=== PATIENT | male | born 1935 | race Caucasian/White ===

== ENCOUNTER 2019-09-22 23:46 | Inpatient (IN) | payer MEDICARE, BC ==
[~2019-09-22] VITALS: Ht 185.4 cm; Wt 89.8 kg
[~2019-09-22 23:46] MED LIST: ASPIR 8181 MG PO; ATENOLOL50 MG PO; FAMOTIDINE20 MG PO; PRAVASTATIN SOD40 MG PO; SIMETHICONE80 MG PO; WARFARIN SODIUM4 MG PO
[2019-09-23] VITALS (9 sets, daily range): BP systolic 105–179; BP diastolic 55–90
[2019-09-23 00:26] LABS: BASOPHILS % 0.7 % (0.0-1.0); EOSINOPHILS # (AUTO) 0.1 (0.0-0.4); EOSINOPHILS % 1.9 % (0.0-6.0); HEMOGLOBIN 13.3 g/dL (14.0-18.0); LYMPHOCYTES # (AUTO) 1.4 (1.0-3.2); LYMPHOCYTES % 23.8 % (18.0-39.1); MEAN CORPUSCULAR HEMOGLOBIN 30.7 pg (28-32); MEAN CORPUSCULAR HGB CONC 32.4 g/dL (31-35); MEAN CORPUSCULAR VOLUME 94.7 fL (81-99); MONOCYTES # (AUTO) 0.6 (0.2-0.8); MONOCYTES % 9.5 % (4.4-11.3); NEUTROPHILS # (AUTO) 3.7 (2.1-6.9); NEUTROPHILS % 63.9 % (38.7-80.0); PLATELET COUNT 152 x10e3/uL (140-360); RED BLOOD COUNT 4.33 x10e6/uL (4.3-5.7); RED CELL DISTRIBUTION WIDTH 14.5 % (11.7-14.4)
[2019-09-23] MEDS ORDERED: WARFARIN SODIUM6 MG PO (00:28)
[2019-09-23] MEDS ORDERED: WARFARIN SODIU2.5 MG PO (00:28)
[2019-09-23] MEDS ORDERED: LISINOPRIL10 MG PO (00:28)
[2019-09-23 00:36] LABS: INR 1.49; PROTHROMBIN TIME 18.6 seconds (11.9-14.5)
[2019-09-23 00:45] LABS: ALANINE AMINOTRANSFERASE 18 IU/L (0-55); ALBUMIN 3.7 g/dL (3.5-5.0); ALBUMIN/GLOBULIN RATIO 1.2 (0.8-2.0); ALKALINE PHOSPHATASE 90 IU/L (40-150); ANION GAP 12.3 mmol/L (8-16); BLOOD UREA NITROGEN 25 mg/dL (7-26); BUN/CREATININE RATIO 22 (6-25); CARBON DIOXIDE 27 mmol/L (22-29); CHLORIDE 105 mmol/L (98-107); CREATININE, SERUM 1.15 mg/dL (0.72-1.25); EST GLOMERULAR FILTRATION RATE > 60 ML/MIN (60-); GLUCOSE 101 mg/dL (74-118); POTASSIUM 4.3 mmol/L (3.5-5.1); SODIUM 140 mmol/L (136-145)
[2019-09-23 00:48] LABS: CALCIUM 9.4 mg/dL (8.4-10.2)
--- NOTE | 2019-09-23 01:04 | Diagnostic Imaging Report ---
History: Head injury, on Coumadin. Comparison studies:None Technique: Axial images were obtained from the brain and cervical spine. Coronal and sagittal images reconstructed from the axial data. Intravenous contrast: None Dose modulation, iterative reconstruction, and/or weight based adjustment of the mA/kV was utilized to reduce the radiation dose to as low as reasonably achievable. Findings: Head CT: Scalp/skull: No abnormalities. No fractures, blastic or lytic lesions. Brain sulci: Moderately prominent. Ventricles: Moderate compensatory dilatation. No hydrocephalus. Parenchyma: Scattered hypodensities in the supratentorial white matter are small vessel ischemic changes. Cortical-based hypodensity with volume loss at the right inferior frontal gyrus and left occipital temporal region, related to remote insult. Chronic lacunar infarct of the left blanco radiata. No masses, hemorrhage or acute cortical vascular insults. Sellar/suprasellar region: No abnormalities. Craniocervical junction: Patent foramen magnum. No Chiari one malformation. Incidental findings: Atherosclerotic calcifications in the carotid siphons and vertebral arteries . Cervical spine CT: Fractures: None. Soft tissues: No gross abnormalities. Atlantoaxial articulation: Degenerative changes without acute abnormality. Alignment: Normal lordosis. No scoliosis. Cervicomedullary junction: No abnormalities. Patent foramen magnum. Vertebrae: No infection or neoplasm. Degenerative changes: Decreased intervertebral space with endplate sclerosis from C6 through T2 moderate left at C3-4, moderate right at C4-5, severe right and mild left at C5-6, and C6-7.. Incidental findings: Atherosclerotic calcifications of the carotid bulbs and aortic arch. Impression: Head CT: 1. No acute abnormality. Cervical spine CT: 1. No acute abnormalities. 2. Cannot exclude ligament, spinal cord and or vascular abnormalities on the basis of this examination. Signed by: DR Tomy Esteban M.D. on 09/23/2019 1:01 AM
--- OUTSIDE RECORDS SUMMARY | 2019-09-23 01:58 | XMS REPORT ---
Author Author [facility] Address Unknown Phone Unavailable Care Team Providers Care Record Press Tender Name Role Phone LASHAY MADDIE Unavailable Unavailable Problems This patient has no known problems. Allergies, Adverse Reactions, Alerts This patient has no known allergies or adverse reactions. Medications This patient has no known medications. Results Test Description Test Time Test Comments Text Results Atomic Results Result Comments CT BRAIN WO 2019-09-23 00:49:00 [facility] [address] [address] Patient Name: NINO TIRADO MR #: [id number] : 1935 Age/Sex: 84/M Req #: [id number] Adm Physician: Ordered by: MADDIE METZ DO Report #: [id number] Location: ER Room/Bed: Procedure: [id number] CT/CT BRAIN WO Exam Date: Exam Time: REPORT STATUS: Signed History: Head injury, on Coumadin. Comparison studies:None Technique: Axial images were obtained from the brain and cervical spine. Coronal and sagittal images reconstructed from the axial data. Intravenous contrast: None Dose modulation, iterative reconstruction, and/or weight based adjustment of the mA/kV was utilized to reduce the radiation dose to as low as reasonably achievable. Findings: Head CT: Scalp/skull: No abnormalities. No fractures, blastic or lytic lesions. Brain sulci: Moderately prominent. Ventricles: Moderate compensatory dilatation. No hydrocephalus. Parenchyma: Scattered hypodensities in the supratentorial white matter are small vessel ischemic changes. Cortical-based hypodensity with volume loss at the right inferior frontal gyrus and left occipital temporal region, related to remote insult. Chronic lacunar infarct of the left blanco radiata. No masses, hemorrhage or acute cortical vascular insults. Sellar/suprasellar region: No abnormalities. Craniocervical junction: Patent foramen magnum. No Chiari one malformation. Incidental findings: Atherosclerotic calcifications in the carotid siphons and vertebral arteries . Cervical spine CT: Fractures: None. Soft tissues: No gross abnormalities. Atlantoaxial articulation: Degenerative changes without acute abnormality. Alignment: Normal lordosis. No scoliosis. Cervicomedullary junction: No abnormalities. Patent foramen magnum. Vertebrae: No infection or neoplasm. Degenerative changes: Decreased intervertebral space with endplate sclerosis from C6 through T2 moderate left at C3-4, moderate right at C4-5, severe right and mild left at C5-6, and C6-7.. Incidental findings: Atherosclerotic calcifications of the carotid bulbs and aortic arch. Impression: Head CT: 1. No acute abnormality. Cervical spine CT: 1. No acute abnormalities. 2. Cannot exclude ligament, spinal cord and or vascular abnormalities on the basis of this examination. Signed by: DR Tomy Esteban M.D. on 09/23/2019 1:01 AM Dictated By: TOMY ESTEBAN MD 0 Transcribed By: JAYDE on 09/23/19100 COPY TO: MADDIE METZ DO CT CERVICAL SPINE WO 2019-09-23 00:49:00 [address] [address] Patient Name: NINO TIRADO MR #: [id number] : 1935 Age/Sex: 84/M Req #: [id number] Adm Physician: Ordered by: MADDIE METZ DO Report #: [id number] Location: Room/Bed: Procedure: [id number] CT/CT CERVICAL SPINE WO Exam Date: 09/23/19 Exam Time: 0025 REPORT STATUS: Signed History: Head injury, on Coumadin. Comparison studies :None Technique: Axial images were obtained from the brain and cervical spine. Coronal and sagittal images reconstructed from the axial data. Intravenous contrast: None Dose modulation, iterative reconstruction, and/or weight based adjustment of the mA/kV was utilized to reduce the radiation dose to as low as reasonably achievable. Findings: Head CT: Scalp/skull: No abnormalities. No fractures, blastic or lytic lesions. Brain sulci: Moderately prominent. Ventricles: Moderate compensatory dilatation. No hydrocephalus. Parenchyma: Scattered hypodensities in the supratentorial white matter are small vessel ischemic changes. Cortical-based hypodensity with volume loss at the right inferior frontal gyrus and left occipital temporal region, related to remote insult. Chronic lacunar infarct of the left blanco radiata. No masses, hemorrhage or acute cortical vascular insults. Sellar/suprasellar region: No abnormalities. Craniocervical junc tion: Patent foramen magnum. No Chiari one malformation. Incidental findings: Atherosclerotic calcifications in the carotid siphons and vertebral arteries . Cervical spine CT: Fractures: None. Soft tissues: No gross abnormalities. Atlantoaxial articulation: Degenerative changes without acute abnormality. Alignment: Normal lordosis. No scoliosis. Cervicomedullary junction: No abnormalities. Patent foramen magnum. Vertebrae: No infection or neoplasm. Degenerative changes: Decreased intervertebral space with endplate sclerosis from C6 through T2 moderate left at C3-4, moderate right at C4-5, severe right and mild left at C5-6, and C6- 7.. Incidental findings: Atherosclerotic calcifications of the carotid bulbs and aortic arch. Impression: Head CT: 1. No acute abnormality. Cervical spine CT: 1. No acute abnormalities. 2. Cannot exclude ligament, spinal cord and or vascular abnormalities on the basis of this examination. Signed by: DR Tomy Esteban M.D. on 09/23/2019 1:01 AM Dictated By: TOMY HERNANDEZ MD 0 Transcribed By: JAYDE on 09/23/19100 COPY TO: MADDIE METZ DO
[2019-09-23] MEDS: HYDROCODONE/APAP 5MG-325MG TAB PO PRN ×3 (03:41→16:10)
--- NOTE | 2019-09-23 03:48 | NUR ---
RECEIVED PATIENT AT THIS TIME FROM ED. PATIENT AMBULATED WITH ASSISTANCE TO TOILET TO VOID. A&OX3. LUNG SOUNDS CLEAR. BOWEL SOUNDS ACTIVE. PEDAL PULSES PALPABLE. SKIN INTACT EXCEPT FOR 1 INCH LACERATION TO L SIDE OF HEAD ABOVE EAR, STAPLED IN ED, NO FRESH DRAINAGE NOTED. 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 L AC 20G IV ASYMPTOMATIC, INTACT, AND PATENT. PAIN IN HEAD 6/10 ABOUT THE SAME BEFORE HE RECEIVED PAIN MEDICATION IN ED. PAIN IN L LOWER RIBS WHEN PATIENT TAKES A DEEP BREATH. NO OTHER PAIN REPORTED. NO S&S OF DISTRESS NOTED. AT BEDSIDE. BED LOCKED IN LOWEST POSITION, SIDE RAILS UPX2, CALL LIGHT IN REACH.
--- NOTE | 2019-09-23 07:25 | NUR ---
PATIENT IN BED RESTING WITH NO S/S OF DISTRESS. MAURICIO INTACT TO LEFT SIDE OF HEAD. SMALL BLACK LESIONS TO BACK. BED IN LOWER POSITION, CALL LIGHT AT REACH. FAMILY AT BED SIDE.
[2019-09-23] MEDS ORDERED: DIAZEPAM 5 MG TAB PO NR (10:45)
[2019-09-23] MEDS: ATENOLOL 50 MG TAB PO SCH (10:52)
[2019-09-23] MEDS: LISINOPRIL 10 MG TAB PO SCH (10:52)
--- NOTE | 2019-09-23 11:45 | NUR ---
PATIENT REQUESTED A SEDATION BEFORE MRI PROCEDURE. MD NOTIFIED, NEW ORDER RECEIVED.
--- NOTE | 2019-09-23 14:04 | Diagnostic Imaging Report ---
MRI BRAIN WO HISTORY: TIA, head injury COMPARISON: Head CT 09/23/2019 TECHNIQUE: Sagittal T2, axial T2, axial T1, axial T2/FLAIR, axial gradient echo (or susceptibility weighted), coronal T2/FLAIR, and axial diffusion weighted MR images of the brain were obtained without contrast. DISCUSSION: Scalp/bone marrow: Unremarkable. Brain sulci: Prominent. Ventricles: Compensatory dilatation. Extra-axial spaces: No masses or fluid collections. Parenchyma: Small focal area of juxtacortical diffusion restriction (bright on DWI, dark to isointense on ADC) is seen along the right lateral temporal occipital convexity. This is compatible with acute to subacute ischemia. Subtle small focal area of cortical diffusion restriction is seen in the right frontal-insular region No other diffusion restricting abnormalities are seen. Focal areas of encephalomalacia in the right lateral orbitofrontal lobe and left temporal pole are likely related to remote trauma. Areas of focal encephalomalacia along the left inferomedial occipital lobe and upper left precentral gyrus may be from remote infarcts. Scattered T2/FLAIR hyperintense foci throughout the supratentorial white matter are likely chronic microvascular ischemic changes. There is an associated old small lacunar infarct in the left blanco radiata. Otherwise, no mass, or acute hemorrhage. Vessels: Normal flow voids in major arteries and veins. Sellar/Suprasellar region: No abnormalities. Craniocervical junction: No abnormalities. Incidental findings: Bilateral ocular lens replacement. IMPRESSION: 1. Focal acute to subacute juxtacortical ischemia along the right lateral temporal-occipital convexity. 2. Questionable focal cortical diffusion restriction in the right frontal-insular region may be due to acute ischemia/cytotoxic edema, or postictal change in the appropriate clinical setting. 3. Otherwise, no acute intracranial abnormalities. 4. Right lateral orbitofrontal and left temporal pole encephalomalacia is likely from remote trauma. 5. Left occipital and upper left precentral gyrus encephalomalacia may be from remote infarcts. 6. Mild supratentorial chronic microvascular ischemic change with old left blanco radiata lacunar infarct. 7. Generalized cerebral volume loss. Signed by: Dr. Jeremias Ambrocio M.D. on 09/23/2019 2:00 PM
--- NOTE | 2019-09-23 14:57 | NUR ---
MD IN TO SEE PATIENT, NEW ORDER RECEIVED TO HOLD TODAY'S DOSE OF COMADIN. PATIENT AWARE OF PLAN OF CARE.
[2019-09-23] MEDS: WARFARIN SOD 3 MG TAB PO SCH (17:00)
--- NOTE | 2019-09-23 19:00 | NUR ---
RECEIVED PATIENT IN BEDSIDE REPORT. NO PAIN REPORTED. MAURICIO TO L SIDE OF HEAD INTACT, NO NEW DRAINAGE NOTED. NO S&S OF DISTRESS NOTED. FAMILY AT BEDSIDE. BED LOCKED IN LOWEST POSITION, SIDE RAILS UPX2, CALL LIGHT IN REACH.
[2019-09-23] MEDS: PRAVASTATIN 20 MG TAB PO SCH (20:54)
--- NOTE | 2019-09-23 21:05 | Diagnostic Imaging Report ---
History:Head injury, on Coumadin. Comparison studies:CT head and MRI brain 09/23/2019. Technique: Axial images were obtained from the skull base to the vertex. Coronal and sagittal images reconstructed from the axial data. Intravenous contrast: None Dose modulation, iterative reconstruction, and/or weight based adjustment of the mA/kV was utilized to reduce the radiation dose to as low as reasonably achievable. Findings: Scalp/skull: Left parietal scalp hematoma without fracture. Adjacent skin sutures. Extra-axial spaces: No masses. No fluid collections. Brain sulci: Moderately prominent. Ventricles: Moderate compensatory dilatation. No hydrocephalus. Parenchyma: Small cortical-based hypodensity at the right temporo-occipital region and right anterior insula, secondary to evolving subacute infarcts. Scattered hypodensities in the supratentorial white matter are small vessel ischemic changes. Cortical-based hypodensity with volume loss at the right inferior frontal gyrus and left occipital temporal region, related to remote insults. Chronic lacunar infarct of the left blanco radiata. No masses or hemorrhage. Sellar/suprasellar region: No abnormalities. Craniocervical junction: Patent foramen magnum. No Chiari one malformation. Incidental findings: Atherosclerotic calcifications in the carotid siphons and vertebral arteries . Impression: Right temporo-occipital region and right anterior insula evolving subacute infarcts, better seen on recent MRI brain. No changes compared to previous MR brain. Signed by: DR Tomy Esteban M.D. on 09/23/2019 9:01 PM
--- NOTE | 2019-09-23 23:02 | History and Physical ---
CLINICAL HISTORY: This is an 84-year-old white man, known to our service from previous evaluation, patient of Dr. Lebron, admitted via emergency room because of syncope with head trauma. This patient has chronic atrial fibrillation, taking Coumadin 8.5 mg on Sundays and 6 mg on the rest of the week. His INR is only 1.4. 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 On the day of admission, his noticed that he could not see her, but he stated that he could see other objects in the room. His offered to call 911 and in the process of turning away from him, he tried to get out of bed, became unconscious and fell, but does not remember hitting the ground and then struck his head against the coffee table, the last part he remembered. He has had also bounced off a side chair causing multiple bruises in the head and laceration. CT scan in the emergency room failed to show any pathology; however, an MRI did show multiple defects including focal acute and subacute juxtacortical ischemia involving the right lateral temporo-occipital convexity, questionable focal cortical diffuse restriction in the right fronto-insular region, thought to be due to ischemic cytotoxic edema. The right lateral orbitofrontal, left temporal pole encephalomalacia was also noted, was thought to be due to previous trauma. Additionally, there was left occipital, upper left precentral gyrus encephalomalacia. There was also microvascular disease. The patient is being admitted for further evaluation and treatment. PAST MEDICAL HISTORY: Remarkable for hypertension, hyperlipidemia, atrial fibrillation, previous carotid disease, status post left carotid endarterectomy. He has also had bowel obstruction, that required surgery by Dr. Cristian Philip. Previous stroke as already been mentioned. 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 REVIEW OF SYSTEMS: Noncontributory. FAMILY HISTORY: Mother from congestive heart failure. Father had bone cancer. Brother had prostate cancer. PHYSICAL EXAMINATION: GENERAL: He is alert, coherent, appears to be comfortable. CARDIAC: Jugular veins were not distended. S1 and S2 were irregularly irregular with variable intensity of S1. LUNGS: Clear. ABDOMEN: Soft. Bowel sounds are present. EXTREMITIES: Show no cyanosis, clubbing, or edema. LABORATORY STUDIES: Chest x-ray was negative. CT scan of the neck was negative. White count was 5700, hemoglobin 13.3, and platelet count 152,000. Electrolytes are normal. INR is 1.4. IMPRESSION: 1. Syncope of undetermined etiology. Consider orthostasis. Consider cardiac arrhythmias. 2. Multiple head trauma. 3. Ischemic vascular disease as described above with previous cerebrovascular accident with residual right visual field defect as well as diplopia. 4. Hypertension. 5. Hypercholesterolemia. 6. Carotid artery disease, status post left carotid endarterectomy. 7. History of bowel obstruction. 8. Chronic anticoagulation for atrial fibrillation. 9. Atrial fibrillation. RECOMMENDATION: Consider anticoagulation once cleared by Neurology. Repeat Doppler scan and echocardiogram. Physical therapy. MD KASHIF Schneider/MODL /[id number] cc: MD Jb Murphy MD
[2019-09-24] VITALS (9 sets, daily range): BP systolic 119–157; BP diastolic 60–89
[2019-09-24] MEDS: HYDROCODONE/APAP 5MG-325MG TAB PO PRN ×2 (08:33→18:18)
[2019-09-24] MEDS: ATENOLOL 50 MG TAB PO SCH (09:21)
[2019-09-24] MEDS: LISINOPRIL 10 MG TAB PO SCH (09:21)
--- NOTE | 2019-09-24 09:46 | NUR ---
PAGED MD LANDON REGARDING CONSULT OF DR. CALABRESE WILL NOT BE IN TO SEE PT PER MD CALABRESE. AWAITING CALL BACK.
--- NOTE | 2019-09-24 10:23 | NUR ---
PRAVEEN explained to patient, patient signed, copy to patient, org to chart
--- NOTE | 2019-09-24 14:15 | NUR ---
CALLED OTHER NEUROLOGIST COVERING FOR MD CALABRESE, DR. SANDERS. MD SANDERS STATED HE WILL NOT BE AVAILABLE TO SEE PT'S UNTIL TUESDAY.
--- NOTE | 2019-09-24 15:30 | NUR ---
DR. MUNOZ OFFICE CALLED REGARDING NEUROLOGIST MARILYN WILL NOT BE AVAILABLE UNTIL TUESDAY. SPOKE WITH NURSE IN OFFICE. NURSE STATED THERE WAS NOTHING FOR MD MUNOZ TO DUE FOR THE FACT THAT HE WAS NOT A NEUROLOGIST. FOR THIS NURSE TO FIND WHOEVER IS COVERING FOR BHARATI.
[2019-09-24] MEDS: WARFARIN SOD 3 MG TAB PO SCH ×2 (17:00→18:18)
--- NOTE | 2019-09-24 17:33 | NUR ---
SPOKE WITH DR. MUNOZ REGARDING ISSUE WITH NEUROLOGY. DR. MUNOZ STATED HE WILL BE IN TO SEE PT.
--- NOTE | 2019-09-24 19:00 | NUR ---
RECEIVED PATIENT IN BEDSIDE REPORT. PATIENT REPORTS SLIGHT PAIN IN L LEG, LIGHT YELLOWISH BRUISING NOTED TO L THIGH, DEVELOPED SINCE THE FALL WHICH BROUGHT HIM IN. PAIN MEDICATION GIVEN RECENTLY. NO OTHER S&S OF DISTRESS NOTED. BED LOCKED IN LOWEST POSITION, SIDE RAILS UPX2, CALL LIGHT IN REACH. FAMILY MEMBER AT BEDSIDE.
[2019-09-24] MEDS: PRAVASTATIN 20 MG TAB PO SCH (21:00)
[2019-09-25] VITALS (8 sets, daily range): BP systolic 93–131; BP diastolic 57–69
[2019-09-25 05:49] LABS: BASOPHILS % 0.4 % (0.0-1.0); EOSINOPHILS # (AUTO) 0.1 (0.0-0.4); EOSINOPHILS % 1.7 % (0.0-6.0); HEMOGLOBIN 12.3 g/dL (14.0-18.0); LYMPHOCYTES # (AUTO) 1.2 (1.0-3.2); MEAN CORPUSCULAR HEMOGLOBIN 30.3 pg (28-32); MEAN CORPUSCULAR HGB CONC 32.4 g/dL (31-35); MEAN CORPUSCULAR VOLUME 93.6 fL (81-99); MONOCYTES # (AUTO) 0.7 (0.2-0.8); MONOCYTES % 9.8 % (4.4-11.3); NEUTROPHILS # (AUTO) 5.4 (2.1-6.9); NEUTROPHILS % 71.7 % (38.7-80.0); PLATELET COUNT 157 x10e3/uL (140-360); RED BLOOD COUNT 4.06 x10e6/uL (4.3-5.7); RED CELL DISTRIBUTION WIDTH 14.6 % (11.7-14.4)
[2019-09-25 06:02] LABS: INR 1.33; PROTHROMBIN TIME 17.1 seconds (11.9-14.5)
[2019-09-25 06:07] LABS: ANION GAP 11.3 mmol/L (8-16); BLOOD UREA NITROGEN 17 mg/dL (7-26); BUN/CREATININE RATIO 17 (6-25); CALCIUM 8.8 mg/dL (8.4-10.2); CARBON DIOXIDE 26 mmol/L (22-29); CHLORIDE 106 mmol/L (98-107); EST GLOMERULAR FILTRATION RATE > 60 ML/MIN (60-); GLUCOSE 99 mg/dL (74-118); POTASSIUM 4.3 mmol/L (3.5-5.1); SODIUM 139 mmol/L (136-145)
[2019-09-25] MEDS: ASPIRIN 81 MG CHEW TAB PO SCH (08:58)
[2019-09-25] MEDS: ATENOLOL 50 MG TAB PO SCH (08:58)
[2019-09-25] MEDS: LISINOPRIL 10 MG TAB PO SCH (08:58)
[2019-09-25] MEDS: WARFARIN SOD 3 MG TAB PO SCH (18:22)
--- NOTE | 2019-09-25 19:00 | NUR ---
RECEIVED PATIENT IN BEDSIDE REPORT. PATIENT REPORTS NO PAIN AT THIS TIME, ONLY HAS PAIN IN L THIGH WHEN STANDING AND WALKING. L AC 20G IV ASYMPTOMATIC, INTACT, AND PATENT. NO S&S OF DISTRESS NOTED. BED LOCKED IN LOWEST POSITION, SIDE RAILS UPX2, CALL LIGHT IN REACH.
[2019-09-25] MEDS: PRAVASTATIN 20 MG TAB PO SCH (21:24)
[2019-09-26] VITALS (9 sets, daily range): BP systolic 107–126; BP diastolic 65–82
[2019-09-26] MEDS: HYDROCODONE/APAP 5MG-325MG TAB PO PRN (07:30)
[2019-09-26] MEDS: ATENOLOL 50 MG TAB PO SCH (08:20)
[2019-09-26] MEDS: ASPIRIN 81 MG CHEW TAB PO SCH (08:20)
[2019-09-26] MEDS: LISINOPRIL 10 MG TAB PO SCH (08:20)
[2019-09-26 09:08] LABS: INR 1.33; PROTHROMBIN TIME 17.1 seconds (11.9-14.5)
[2019-09-26] MEDS: WARFARIN SOD 3 MG TAB PO SCH (18:49)
[2019-09-26] MEDS: PRAVASTATIN 20 MG TAB PO SCH (19:41)
--- NOTE | 2019-09-26 19:42 | NUR ---
2100 statin administered early per patient request.
[2019-09-27 04:30] VITALS: BP 117/70
[2019-09-27 07:08] LABS: INR 1.35; PROTHROMBIN TIME 17.3 seconds (11.9-14.5)
[2019-09-27 08:00] VITALS: BP 116/78
[2019-09-27] MEDS: ASPIRIN 81 MG CHEW TAB PO SCH (08:16)
[2019-09-27] MEDS: LISINOPRIL 10 MG TAB PO SCH (08:16)
[2019-09-27] MEDS: ATENOLOL 50 MG TAB PO SCH (08:17)
[2019-09-27 08:45] VITALS: BP 116/78
[2019-09-27] MEDS ORDERED: CLOPIDOGREL75 MG PO (08:54)
[2019-09-27] MEDS ORDERED: XARELTO20 MG PO (08:54)
--- NOTE | 2019-09-27 10:06 | NUR ---
DISCHARGE INSTRUCTIONS AND PRESCRIPTIONS GIVEN PT VERBALIZED UNDERSTANDING IV DC PRESSURE DRESSING APPLIED AND TAPED PT IS READY FOR DC
--- NOTE | 2019-09-27 10:15 | NUR ---
PT OFF UNIT TO HOME AT THIS TIME
--- NOTE | 2019-09-28 08:25 | Discharge Summary ---
DISCHARGE DIAGNOSES: 1. Right occipital cerebrovascular accident. 2. Chronic atrial fibrillation. 3. Hypertension, controlled. HOSPITAL COURSE: Mr. Chang is a pleasant 84-year-old gentleman, well known to me from the office. He has past medical history significant for chronic atrial fibrillation, on warfarin; history of hypertension; and history of prior CVA. He came to the emergency department with complaints of transient visual disturbance followed by a four brief loss of consciousness. He sustained a laceration to the left temporal area, which was treated with kalani at the emergency department. He was worked up and CT and MRI were performed. The CT was negative. The MRI was consistent with two small foci of decreased intensity consistent with acute to subacute ischemic lesion mainly over the right occipital area. He was admitted to the hospital. His medications were continued and he was started on aspirin and his warfarin was actually continued as well. On admission, his INR was slightly low at 1.4. At the time of discharge, the patient has been changed over to Xarelto 20 mg daily and clopidogrel has been added 75 mg a day. He is to follow up in my office in 10 days after discharge and he is to follow up with Neurology and Ophthalmology as an outpatient. MD GUY Phipps/JOHNATHON /[id number]
== END 2019-09-27 10:15 | disposition home or self-care (01) | DRG 65 ==
LOC: ER 23:46 → ERHOLD 09-23 01:49 → MED/SURG 09-23 03:48 → OBSVTOIN 09-25 09:20
PROVIDERS: ADMIT Internal Medicine; ATTEND Internal Medicine
PROC: 0HQ1XZZ Repair Face Skin, External Approach (ICD-10-PCS; principal; 2019-09-23)
DX: I63.9 Cerebral infarction, unspecified (principal); I48.20 Chronic atrial fibrillation, unspecified; I10 Essential (primary) hypertension; Z79.01 Long term (current) use of anticoagulants; S01.81XA Laceration without foreign body of other part of head, initial encounter; W19.XXXA Unspecified fall, initial encounter; Y99.9 Unspecified external cause status
CPT/HCPCS: 36415; 70450; 70551; 72125; 80048; 80053; 82270; 82948; 85025; 85610; 93005; 93306; 93880; 99284; G0378

== ENCOUNTER 2020-11-24 11:07 | Inpatient (IN) | payer BC, MEDICARE ==
[~2020-11-24] VITALS: Ht 185.4 cm; Wt 90.7 kg
[~2020-11-24 11:07] MED LIST changes: +CLOPIDOGREL75 MG PO; +LISINOPRIL10 MG PO; +WARFARIN SODIU2.5 MG PO; +WARFARIN SODIUM6 MG PO; +XARELTO20 MG PO
[2020-11-24] MEDS ORDERED: ONDANSETRON HCL INJ 2MG/ML 2ML 2 MG/ML VIAL IV STA (11:47)
[2020-11-24] MEDS ORDERED: SODIUM CHLORIDE 0.9% 1000ML 1,000 ML IV STA (11:47)
[2020-11-24 11:59] LABS: BASOPHILS % 0.3 % (0.0-1.0); EOSINOPHILS % 0.2 % (0.0-6.0); HEMATOCRIT 45.4 % (38.2-49.6); HEMOGLOBIN 14.7 g/dL (14.0-18.0); LYMPHOCYTES # (AUTO) 0.9 (1.0-3.2); LYMPHOCYTES % 5.9 % (18.0-39.1); MEAN CORPUSCULAR HEMOGLOBIN 30.5 pg (28-32); MEAN CORPUSCULAR HGB CONC 32.4 g/dL (31-35); MEAN CORPUSCULAR VOLUME 94.2 fL (81-99); MONOCYTES # (AUTO) 0.9 (0.2-0.8); MONOCYTES % 6.1 % (4.4-11.3); NEUTROPHILS # (AUTO) 12.5 (2.1-6.9); NEUTROPHILS % 87.1 % (38.7-80.0); PLATELET COUNT 162 x10e3/uL (140-360); RED BLOOD COUNT 4.82 x10e6/uL (4.3-5.7); RED CELL DISTRIBUTION WIDTH 14.7 % (11.7-14.4)
[2020-11-24] MEDS ORDERED: MORPHINE SULFATE INJ 2 MG/ML SYR IV STA (12:03)
[2020-11-24] MEDS ORDERED: DIATRIZOATE MEGL/DIATRIZOA SOD 30 ML BTL PO ONE (12:14)
[2020-11-24 12:15] LABS: INR 1.84; PROTHROMBIN TIME 22.7 seconds (11.9-14.5)
[2020-11-24 12:16] LABS: PARTIAL THROMBOPLASTIN TIME 44.9 seconds (23.8-35.5)
[2020-11-24 12:25] LABS: ALANINE AMINOTRANSFERASE 21 IU/L (0-55); ALBUMIN 4.1 g/dL (3.5-5.0); ALBUMIN/GLOBULIN RATIO 1.2 (0.8-2.0); ALKALINE PHOSPHATASE 80 IU/L (40-150); ANION GAP 15.7 mmol/L (8-16); BLOOD UREA NITROGEN 32 mg/dL (7-26); BUN/CREATININE RATIO 29 (6-25); CALCIUM 9.3 mg/dL (8.4-10.2); CARBON DIOXIDE 24 mmol/L (22-29); CHLORIDE 107 mmol/L (98-107); CREATINE KINASE 95 IU/L (30-200); CREATININE, SERUM 1.09 mg/dL (0.72-1.25); EST GLOMERULAR FILTRATION RATE > 60 ML/MIN (60-); GLUCOSE 117 mg/dL (74-118); POTASSIUM 4.7 mmol/L (3.5-5.1); SODIUM 142 mmol/L (136-145)
[2020-11-24] MEDS ORDERED: IOPAMIDOL 370 MG/ML 200 ML INFUS..BTL INJ ONE (13:15)
[2020-11-24] MEDS ORDERED: BENZOCAINE/TETRACAINE/BUTAMBEN AERO SPRAY 56 GM CAN TOP ONE (14:15)
[2020-11-24] MEDS ORDERED: ONDANSETRON HCL INJ 2MG/ML 2ML 2 MG/ML VIAL IV PRN (15:00)
[2020-11-24] MEDS: PIPER-TAZ 3.375 GM 50 ML IV SCH ×2 (16:04→21:25)
[2020-11-24] MEDS: MORPHINE SULFATE INJ 2 MG/ML SYR IV PRN ×2 (16:11→22:26)
[2020-11-24] MEDS: SODIUM CHLORIDE 0.9% 1000ML 1,000 ML IV SCH (19:33)
[2020-11-24 20:23] LABS: CLARITY,URINE SL CLOUDY (CLEAR); COLOR,URINE AMBER (YELLOW); KETONES,URINE NEGATIVE (NEGATIVE); LEUKOCYTE ESTERASE ,URINE NEGATIVE (NEGATIVE); NITRITE,URINE NEGATIVE (NEGATIVE); PROTEIN,URINE DIPSTICK NEGATIVE (NEGATIVE); URINE UROBILINOGEN 0.2 mg/dL (0.2 - 1)
[2020-11-24 20:44] LABS: BACTERIA,URINE RARE /HPF; RBC,URINE 0-5 /HPF (0-5); WBC,URINE (MAN) 0-5 /HPF (0-5)
[2020-11-24 20:45] LABS: URIC ACID CRYSTALS,URINE FEW (FEW)
[2020-11-24 22:57] VITALS: BP 133/78
[2020-11-24 23:00] VITALS: BP 133/78
[2020-11-25] VITALS (7 sets, daily range): BP systolic 107–129; BP diastolic 66–82
[2020-11-25] MEDS ORDERED: LISINOPRIL5 MG (00:49)
[2020-11-25] MEDS: PIPER-TAZ 3.375 GM 50 ML IV SCH ×5 (02:28→21:32)
[2020-11-25 05:00] LABS: BASOPHILS % 0.2 % (0.0-1.0); EOSINOPHILS % 0.2 % (0.0-6.0); HEMATOCRIT 41.5 % (38.2-49.6); HEMOGLOBIN 13.5 g/dL (14.0-18.0); LYMPHOCYTES # (AUTO) 0.6 (1.0-3.2); LYMPHOCYTES % 6.5 % (18.0-39.1); MEAN CORPUSCULAR HEMOGLOBIN 30.5 pg (28-32); MEAN CORPUSCULAR HGB CONC 32.5 g/dL (31-35); MEAN CORPUSCULAR VOLUME 93.7 fL (81-99); MONOCYTES # (AUTO) 0.9 (0.2-0.8); MONOCYTES % 9.8 % (4.4-11.3); NEUTROPHILS # (AUTO) 7.4 (2.1-6.9); NEUTROPHILS % 83.1 % (38.7-80.0); PLATELET COUNT 174 x10e3/uL (140-360); RED BLOOD COUNT 4.43 x10e6/uL (4.3-5.7); RED CELL DISTRIBUTION WIDTH 14.7 % (11.7-14.4)
[2020-11-25 05:28] LABS: ALANINE AMINOTRANSFERASE 15 IU/L (0-55); ALBUMIN 3.5 g/dL (3.5-5.0); ALBUMIN/GLOBULIN RATIO 1.2 (0.8-2.0); ALKALINE PHOSPHATASE 62 IU/L (40-150); ANION GAP 16.1 mmol/L (8-16); BLOOD UREA NITROGEN 31 mg/dL (7-26); BUN/CREATININE RATIO 31 (6-25); CALCIUM 8.7 mg/dL (8.4-10.2); CARBON DIOXIDE 25 mmol/L (22-29); CHLORIDE 106 mmol/L (98-107); EST GLOMERULAR FILTRATION RATE > 60 ML/MIN (60-); GLUCOSE 122 mg/dL (74-118); POTASSIUM 4.1 mmol/L (3.5-5.1); SODIUM 143 mmol/L (136-145)
[2020-11-25] MEDS: SODIUM CHLORIDE 0.9% 1000ML 1,000 ML IV SCH ×3 (06:32→10:15)
[2020-11-25] MEDS ORDERED: BUPIVACAINE HCL 0.5% INJ 30 ML VIAL INJ ONE (08:52)
[2020-11-25] MEDS ORDERED: ACETAMINOPHEN 325 MG TAB PO PRN ×2 (09:45→10:45)
[2020-11-25] MEDS ORDERED: FENTANYL CITRATE/PF 100MCG/2 ML INJ ONE (12:42)
[2020-11-25] MEDS ORDERED: GLYCOPYRROLATE INJ 0.2 MG/ML VIAL ONE (13:15)
[2020-11-25] MEDS ORDERED: PROPOFOL IV EMULSION 10 MG/ML 20 ML VIAL ONE (13:15)
[2020-11-25] MEDS ORDERED: DEXAMETHASONE SOD PHOS INJ 4 MG/ML VIAL ONE (13:15)
[2020-11-25] MEDS ORDERED: SUCCINYLCHOLINE CHLORIDE 20 MG/ML 10ML VIAL ONE (13:15)
[2020-11-25] MEDS ORDERED: LIDOCAINE HCL 2% JELLY 5 ML TUBE ONE (13:15)
[2020-11-25] MEDS ORDERED: SEVOFLURANE INHAL SOLN 250 ML PEN BTL ONE (13:15)
[2020-11-25] MEDS ORDERED: ONDANSETRON HCL INJ 2MG/ML 2ML 2 MG/ML VIAL ONE (13:15)
[2020-11-25] MEDS ORDERED: NEOSTIGMINE 1 MG/ML 10ML VIAL ONE (13:15)
[2020-11-25] MEDS ORDERED: ROCURONIUM BROMIDE 10 MG/ML 5ML VIAL IV ONE (13:15)
[2020-11-25] MEDS ORDERED: LIDOCAINE HCL 2% LOCAL INJ 5 ML SDV VIAL INJ ONE (13:15)
[2020-11-25] MEDS ORDERED: IOPAMIDOL 370 MG/ML 200 ML INFUS..BTL INJ ONE (13:30)
[2020-11-25] MEDS: ONDANSETRON HCL INJ 2MG/ML 2ML 2 MG/ML VIAL IV PRN (16:17)
[2020-11-25] MEDS: MORPHINE SULFATE INJ 2 MG/ML SYR IV PRN (16:17)
[2020-11-25] MEDS: PRAVASTATIN 20 MG TAB PO SCH (21:32)
[2020-11-25] MEDS: DOCUSATE SODIUM LIQD 100 MG/10 ML UDC NG SCH (21:32)
[2020-11-26] VITALS (8 sets, daily range): BP systolic 118–139; BP diastolic 65–94
[2020-11-26] MEDS: MORPHINE SULFATE INJ 2 MG/ML SYR IV PRN ×2 (02:18→11:10)
[2020-11-26] MEDS: ONDANSETRON HCL INJ 2MG/ML 2ML 2 MG/ML VIAL IV PRN (02:18)
[2020-11-26] MEDS: PIPER-TAZ 3.375 GM 50 ML IV SCH ×4 (03:30→20:44)
[2020-11-26 05:07] LABS: BASOPHILS % 0.2 % (0.0-1.0); EOSINOPHILS # (AUTO) 0.1 (0.0-0.4); EOSINOPHILS % 1.6 % (0.0-6.0); HEMOGLOBIN 12.1 g/dL (14.0-18.0); LYMPHOCYTES # (AUTO) 0.8 (1.0-3.2); LYMPHOCYTES % 9.4 % (18.0-39.1); MEAN CORPUSCULAR HEMOGLOBIN 30.3 pg (28-32); MEAN CORPUSCULAR HGB CONC 31.8 g/dL (31-35); MONOCYTES # (AUTO) 0.7 (0.2-0.8); MONOCYTES % 8.1 % (4.4-11.3); NEUTROPHILS # (AUTO) 6.7 (2.1-6.9); NEUTROPHILS % 80.3 % (38.7-80.0); PLATELET COUNT 143 x10e3/uL (140-360); RED CELL DISTRIBUTION WIDTH 14.9 % (11.7-14.4)
[2020-11-26 05:37] LABS: ALANINE AMINOTRANSFERASE 14 IU/L (0-55); ALBUMIN 3.1 g/dL (3.5-5.0); ALBUMIN/GLOBULIN RATIO 1.1 (0.8-2.0); ALKALINE PHOSPHATASE 53 IU/L (40-150); ANION GAP 13.2 mmol/L (8-16); BLOOD UREA NITROGEN 24 mg/dL (7-26); BUN/CREATININE RATIO 25 (6-25); CARBON DIOXIDE 24 mmol/L (22-29); CHLORIDE 109 mmol/L (98-107); CHOL/HDL RATIO 2.5 (3.9-4.7); CHOLESTEROL 104 MD/DL (0-199); CREATININE, SERUM 0.96 mg/dL (0.72-1.25); EST GLOMERULAR FILTRATION RATE > 60 ML/MIN (60-); GLUCOSE 106 mg/dL (74-118); HDL CHOLESTEROL 41 MG/DL (40-60); LDL CHOLESTEROL 54 MG/DL (60-130); MAGNESIUM 1.9 MG/DL (1.3-2.1); PHOSPHORUS 2.2 MG/DL (2.3-4.7); POTASSIUM 4.2 mmol/L (3.5-5.1); SODIUM 142 mmol/L (136-145); TRIGLYCERIDES 46 MG/DL (0-149)
[2020-11-26] MEDS: SODIUM CHLORIDE 0.9% 1000ML 1,000 ML IV SCH (05:40)
[2020-11-26 05:43] LABS: THYROID STIMULATING HORMONE 1.001 uIU/mL (0.350-4.940)
[2020-11-26] MEDS ORDERED: SODIUM CHLORIDE FLUSH 10 ML SYR INJ PRN (06:45)
[2020-11-26] MEDS ORDERED: NON-FORMULARY MEDICATION (Pravastatin Sodium 40 MG) PO SCH (09:00)
[2020-11-26] MEDS ORDERED: CLOPIDOGREL BISULFATE 75 MG TAB PO SCH (09:00)
[2020-11-26] MEDS: LISINOPRIL 2.5 MG TAB PO SCH (09:56)
[2020-11-26] MEDS: DOCUSATE SODIUM LIQD 100 MG/10 ML UDC NG SCH ×3 (09:56→20:44)
[2020-11-26] MEDS: ATENOLOL 50 MG TAB PO SCH (09:56)
[2020-11-26] MEDS: HYDROCODONE/APAP 5MG-325MG TAB PO PRN (20:44)
[2020-11-26] MEDS: PRAVASTATIN 20 MG TAB PO SCH (20:44)
[2020-11-27] VITALS (8 sets, daily range): BP systolic 126–154; BP diastolic 78–93
[2020-11-27] MEDS: PIPER-TAZ 3.375 GM 50 ML IV SCH ×4 (03:00→20:48)
[2020-11-27 05:06] LABS: BASOPHILS % 0.4 % (0.0-1.0); EOSINOPHILS # (AUTO) 0.1 (0.0-0.4); EOSINOPHILS % 1.7 % (0.0-6.0); HEMATOCRIT 36.6 % (38.2-49.6); LYMPHOCYTES # (AUTO) 0.9 (1.0-3.2); LYMPHOCYTES % 12.3 % (18.0-39.1); MEAN CORPUSCULAR HEMOGLOBIN 31.2 pg (28-32); MEAN CORPUSCULAR HGB CONC 32.8 g/dL (31-35); MEAN CORPUSCULAR VOLUME 95.1 fL (81-99); MONOCYTES # (AUTO) 0.7 (0.2-0.8); MONOCYTES % 9.6 % (4.4-11.3); NEUTROPHILS # (AUTO) 5.8 (2.1-6.9); NEUTROPHILS % 75.9 % (38.7-80.0); PLATELET COUNT 131 x10e3/uL (140-360); RED BLOOD COUNT 3.85 x10e6/uL (4.3-5.7); RED CELL DISTRIBUTION WIDTH 14.5 % (11.7-14.4)
[2020-11-27 05:26] LABS: ALANINE AMINOTRANSFERASE 14 IU/L (0-55); ALBUMIN 3.1 g/dL (3.5-5.0); ALBUMIN/GLOBULIN RATIO 1.1 (0.8-2.0); ALKALINE PHOSPHATASE 53 IU/L (40-150); ANION GAP 12.9 mmol/L (8-16); BLOOD UREA NITROGEN 18 mg/dL (7-26); BUN/CREATININE RATIO 20 (6-25); CALCIUM 8.1 mg/dL (8.4-10.2); CARBON DIOXIDE 24 mmol/L (22-29); CHLORIDE 108 mmol/L (98-107); CREATININE, SERUM 0.91 mg/dL (0.72-1.25); EST GLOMERULAR FILTRATION RATE > 60 ML/MIN (60-); GLUCOSE 103 mg/dL (74-118); PHOSPHORUS 2.3 MG/DL (2.3-4.7); POTASSIUM 3.9 mmol/L (3.5-5.1); SODIUM 141 mmol/L (136-145)
[2020-11-27] MEDS: HYDROCODONE/APAP 5MG-325MG TAB PO PRN ×3 (06:34→20:48)
[2020-11-27] MEDS: DOCUSATE SODIUM LIQD 100 MG/10 ML UDC NG SCH ×3 (08:55→20:48)
[2020-11-27] MEDS: LISINOPRIL 2.5 MG TAB PO SCH (08:55)
[2020-11-27] MEDS: ATENOLOL 50 MG TAB PO SCH (08:55)
[2020-11-27] MEDS ORDERED: MAGNESIUM HYDROXIDE 30 ML UDC PO ONE (14:15)
[2020-11-27] MEDS ORDERED: RIVAROXABAN 20 MG TABLET PO SCH (17:00)
[2020-11-27] MEDS: PRAVASTATIN 20 MG TAB PO SCH (20:48)
[2020-11-28 00:06] VITALS: BP 131/84
[2020-11-28] MEDS: PIPER-TAZ 3.375 GM 50 ML IV SCH ×2 (03:00→08:37)
[2020-11-28 04:00] VITALS: BP 144/73
[2020-11-28 05:03] LABS: BASOPHILS % 0.3 % (0.0-1.0); EOSINOPHILS # (AUTO) 0.1 (0.0-0.4); EOSINOPHILS % 2.2 % (0.0-6.0); HEMATOCRIT 36.6 % (38.2-49.6); LYMPHOCYTES # (AUTO) 1.1 (1.0-3.2); LYMPHOCYTES % 17.1 % (18.0-39.1); MEAN CORPUSCULAR HEMOGLOBIN 30.5 pg (28-32); MEAN CORPUSCULAR HGB CONC 32.8 g/dL (31-35); MEAN CORPUSCULAR VOLUME 92.9 fL (81-99); MONOCYTES # (AUTO) 0.6 (0.2-0.8); MONOCYTES % 9.8 % (4.4-11.3); NEUTROPHILS # (AUTO) 4.5 (2.1-6.9); NEUTROPHILS % 70.4 % (38.7-80.0); PLATELET COUNT 134 x10e3/uL (140-360); RED BLOOD COUNT 3.94 x10e6/uL (4.3-5.7); RED CELL DISTRIBUTION WIDTH 14.1 % (11.7-14.4)
[2020-11-28 05:20] LABS: PLATELET MORPHOLOGY COMMENT NORMAL
[2020-11-28 05:33] LABS: ALANINE AMINOTRANSFERASE 15 IU/L (0-55); ALKALINE PHOSPHATASE 53 IU/L (40-150); ANION GAP 12.9 mmol/L (8-16); BLOOD UREA NITROGEN 18 mg/dL (7-26); BUN/CREATININE RATIO 20 (6-25); CARBON DIOXIDE 25 mmol/L (22-29); CHLORIDE 107 mmol/L (98-107); CREATININE, SERUM 0.89 mg/dL (0.72-1.25); EST GLOMERULAR FILTRATION RATE > 60 ML/MIN (60-); GLUCOSE 97 mg/dL (74-118); POTASSIUM 3.9 mmol/L (3.5-5.1); SODIUM 141 mmol/L (136-145)
[2020-11-28] MEDS ORDERED: LISINOPRIL2.5 MG PO (05:58)
[2020-11-28] MEDS ORDERED: ATENOLOL50 MG PO (05:58)
[2020-11-28] MEDS: HYDROCODONE/APAP 5MG-325MG TAB PO PRN (06:40)
[2020-11-28] MEDS ORDERED: ONDANSETRON HCL 4 MG ORAL DISINTEGRATING TAB PO PRN (08:00)
[2020-11-28] MEDS: DOCUSATE SODIUM LIQD 100 MG/10 ML UDC NG SCH (08:33)
[2020-11-28] MEDS: LISINOPRIL 2.5 MG TAB PO SCH (08:33)
[2020-11-28 08:35] VITALS: BP 155/84
[2020-11-28] MEDS ORDERED: ATENOLOL 50 MG TAB PO SCH (09:00)
[2020-11-28 10:01] VITALS: BP 155/84
[2020-11-28 13:30] VITALS: BP 137/92
[2020-11-28] MEDS ORDERED: TYLENOL # 31 EA PO (15:58)
== END 2020-11-28 14:55 | disposition home or self-care (01) | DRG 354 ==
LOC: ER 11:22 → ERHOLD 15:06 → MED/SURG2 22:56
PROVIDERS: ADMIT Internal Medicine; ATTEND Internal Medicine
PROC: 0WQF0ZZ Repair Abdominal Wall, Open Approach (ICD-10-PCS; principal; 2020-11-25 08:30)
DX: K43.0 Incisional hernia with obstruction, without gangrene (principal); I48.20 Chronic atrial fibrillation, unspecified; I10 Essential (primary) hypertension; I71.4 Abdominal aortic aneurysm, without rupture; E78.5 Hyperlipidemia, unspecified; Z90.49 Acquired absence of other specified parts of digestive tract; Z88.1 Allergy status to other antibiotic agents; Z86.73 Personal history of transient ischemic attack (TIA), and cerebral infarction without residual deficits; Z82.49 Family history of ischemic heart disease and other diseases of the circulatory system; Z80.42 Family history of malignant neoplasm of prostate; Z80.49 Family history of malignant neoplasm of other genital organs; K66.0 Peritoneal adhesions (postprocedural) (postinfection); Z87.891 Personal history of nicotine dependence; Z20.822 Contact with and (suspected) exposure to COVID-19
CPT/HCPCS: 36415; 71045; 74174; 74177; 80053; 80061; 81001; 82550; 82553; 82948; 83036; 83735; 83880; 84100; 84443; 84484; 85025; 85610; 85730; 87086; 93005; 93306; 93880; 99251; 99285; J0330; J1100; J2001; J2270; J2405; J2543; J2710; J3010; J7030; Q9967; U0002

== ENCOUNTER 2023-04-30 11:22 | Emergency (ER) | payer MEDICARE ==
[~2023-04-30] VITALS: Ht 185.4 cm; Wt 90.7 kg
[~2023-04-30 11:22] MED LIST changes: +LISINOPRIL2.5 MG PO; +LISINOPRIL5 MG; +TYLENOL # 31 EA PO
[2023-04-30] MEDS ORDERED: SODIUM CHLORIDE 0.9% 1000ML 1,000 ML IV STA (11:43)
[2023-04-30 11:50] LABS: BASOPHILS % 0.5 % (0.0-1.0); EOSINOPHILS % 0.4 % (0.0-6.0); HEMATOCRIT 48.1 % (38.2-49.6); HEMOGLOBIN 15.9 g/dL (14.0-18.0); LYMPHOCYTES # (AUTO) 0.8 (1.0-3.2); LYMPHOCYTES % 10.6 % (18.0-39.1); MEAN CORPUSCULAR HEMOGLOBIN 31.8 pg (28-32); MEAN CORPUSCULAR HGB CONC 33.1 g/dL (31-35); MEAN CORPUSCULAR VOLUME 96.2 fL (81-99); MONOCYTES # (AUTO) 0.6 (0.2-0.8); MONOCYTES % 7.7 % (4.4-11.3); NEUTROPHILS # (AUTO) 6.2 (2.1-6.9); NEUTROPHILS % 80.5 % (38.7-80.0); PLATELET COUNT 173 x10e3/uL (140-360); RED CELL DISTRIBUTION WIDTH 13.5 % (11.7-14.4)
[2023-04-30 11:55] LABS: INR 1.4
[2023-04-30 11:56] LABS: PARTIAL THROMBOPLASTIN TIME 43.3 seconds (23.8-35.5)
[2023-04-30 12:04] LABS: ALBUMIN 4.4 g/dL (3.5-5.0); ALBUMIN/GLOBULIN RATIO 1.2 (0.8-2.0); ANION GAP 15.1 mmol/L (8-16); CALCIUM 10.2 mg/dL (8.4-10.2); CREATININE, SERUM 0.97 mg/dL (0.72-1.25); POTASSIUM 4.1 mmol/L (3.5-5.1)
[2023-04-30] MEDS ORDERED: IOPAMIDOL 370 MG/ML 100 ML INFUS..BTL INJ ONE (12:18)
[2023-04-30 12:47] LABS: CLARITY,URINE TURBID (CLEAR); COLOR,URINE YELLOW (YELLOW); KETONES,URINE NEGATIVE (NEGATIVE); LEUKOCYTE ESTERASE ,URINE NEGATIVE (NEGATIVE); NITRITE,URINE NEGATIVE (NEGATIVE); PROTEIN,URINE DIPSTICK TRACE (NEGATIVE); URINE UROBILINOGEN 0.2 mg/dL (0.2 - 1)
[2023-04-30 12:57] LABS: AMORPHOUS SEDIMENT,URINE MODERATE (FEW); BACTERIA,URINE FEW /HPF; EPITHELIAL CELLS,URINE FEW /LPF; WBC,URINE (MAN) 0-5 /HPF (0-5)
[2023-04-30 17:20] VITALS: BP 154/82; PULSE 73; RESP 16; TEMP 98.6; O2SAT 100
== END 2023-04-30 17:05 | disposition home or self-care (01) ==
LOC: ER 11:29
DX: R10.31 Right lower quadrant pain (principal); I10 Essential (primary) hypertension; I48.91 Unspecified atrial fibrillation; Z79.01 Long term (current) use of anticoagulants; E78.5 Hyperlipidemia, unspecified; G40.909 Epilepsy, unspecified, not intractable, without status epilepticus; I45.10 Unspecified right bundle-branch block; Z20.822 Contact with and (suspected) exposure to COVID-19; Z79.899 Other long term (current) drug therapy
CPT/HCPCS: 36415; 71045; 74177; 80053; 81001; 82550; 84484; 85025; 85610; 85730; 87086; 93005; 99284; J7030; Q9967; U0002